=== PATIENT | male | born 1955 | race Caucasian/White ===

== ENCOUNTER → 2018-03-10 | Outpatient (CLI) | payer BC ==
[~2018-03-10] MED LIST: REGADENOSON 0.4 MG/5 ML DISP.SYRIN. IV ONE
--- NOTE | 2018-03-10 11:08 | PCVCIMAG ---
APPROVED REPORT Imaging Protocol: Rest Tc-99m/Stress Tc-99m 1 day Study performed: 03/10/2018 08:14:17 Indication: Chest pain, Dyspnea, Abnormal Standard Stress Test with ST segment depression Patient Location: Out-Patient Stress Nurse: Silke Roe RN [place] Tech:Mayte AscencioAMIRAH simpsonMT Ht: 5 ft 10 in Wt: 195 lbs BSA: 2.07 m2 HR: 61 bpm BP: 138/69 mmHg BMI: 27.97 Rhythm: Normal Sinus Rhythm, 1st degree AV block Medical History Medical History: HTN Allergies: No known drug allergies Cardiac Risk Factors: Age Pretest Chest Pain Characteristics: No chest pain Exercise History: Physically active Meds Held (24 hrs): Patient held all meds Resting Data Rest SPECT myocardial perfusion imaging was performed in supine position 45 minutes following the intravenous injection of 10.6 mCi of Tc-99m Sestamibi. Time of rest injection: 829 Date: 03/10/2018 Administration Route: IV Administration Site: Left Hand Pharmacologic Stress Pharmacologic stress test was performed by injecting Regadenoson 0.4 mg IV push over 10-15 seconds immediately followed by the intravenous injection of 31.5 mCi of Tc-99m Sestamibi. Time of stress injection: 939 Date: 03/10/2018 Administration Route: IV Administration Site: Left Hand Gated Stress SPECT was performed 45 minutes after stress injection. The images were gated to evaluate regional wall motion and calculate left ventricular ejection fraction. Stress Test Details Stress Test: Pharmacologic stress testing performed using 0.4 mg of regadenoson per 5 mL given IV over 10 seconds. Reason for pharmacologic stress test: recent EKG changes. HRMax Heart Rate (APMHR): 156 bpm Resting HR: 61 bpmTarget HR (85% APMHR): 132 bpm Max HR Achieved: 96 bpm % of APMHR: 61 Recovery HR: 82 bpm BP Resting BP: 138/69 mmHg Max BP: 140/75 mmHg Recovery BP: 142/65 mmHg ECG Resting ECG: Normal Sinus Rhythm, 1st degree AV block Stress ECG: Normal Sinus Rhythm, 1st degree AV block ST Change: Non-ischemic Recovery ECG: Normal Sinus Rhythm, 1st degree AV block Clinical Reason for Termination: Completed protocol Stress Symptoms: Dyspnea Exercise duration: 0 min 55 sec Symptoms resolved with caffeine. Study Quality Study: Good Artifact: Mild Diaphragmatic artifact Study Data Post stress, the left ventricular ejection was 58%.. SSS: 1 SRS: 1 SDS: 0 TID = 1.08. Perfusion There is a small area of mildly reduced uptake in the basal and apical segments of the inferior wall which is seen on the stress images as well as the resting images. This area thickens and moves normally and is most consistent with attenuation artifact. Wall Motion Normal left ventricular wall motion. Nuclear Conclusion ECG Findings: negative for ischemia Clinical Findings: non-diagnostic Nuclear Findings: negative for ischemia Exercise Capacity: not assessed Left Ventricular Function: normal Risk Study: low This study is of low probability for inducible ischemia or prior infarct. Normal global and segmental LV systolic function. Artifact: Mild Diaphragmatic artifact
== END | disposition home or self-care (01) ==
LOC: PCVCIMAG 07:59
PROVIDERS: ATTEND Internal Medicine Cardiovascular Disease
DX: R07.9 Chest pain, unspecified (principal); R06.09 Other forms of dyspnea; I10 Essential (primary) hypertension
CPT/HCPCS: 78452; 93017; A9500; J2785